=== PATIENT | female | born 2005 | race African-American/Black ===

== ENCOUNTER 2025-05-03 02:59 | Emergency (ER) | payer SELFPAY ==
[~2025-05-03] VITALS: Ht 167.6 cm; Wt 63.5 kg
[2025-05-03 03:04] VITALS: TEMP 36.3; O2SAT 99
[2025-05-03 03:58] LABS: CLARITY URINE CLOUDY (CLEAR); COLOR URINE YELLOW (YELLOW); GLUCOSE URINE NEGATIVE (NEGATIVE); KETONES URINE 2+ (NEGATIVE); LEUKOCYTE ESTERASE URINE 2+ (NEGATIVE); NITRITE URINE NEGATIVE (NEGATIVE); OCCULT BLOOD URINE 2+ (NEGATIVE); PH URINE 6.0 (4.5-8.0); PROTEIN URINE 1+ (NEGATIVE); SPECIFIC GRAVITY URINE 1.029 (1.005-1.030); UROBILINOGEN URINE 1.0 E.U./dL (0.2-1.0)
[2025-05-03 04:07] LABS: *AMPHETAMINES SCREEN URINE NEGATIVE (NEGATIVE); *BARBITURATES SCREEN URINE NEGATIVE (NEGATIVE); *BENZODIAZEPINES SCREEN URINE NEGATIVE (NEGATIVE); *COCAINE SCREEN URINE NEGATIVE (NEGATIVE); CANNABINOID URINE SCREEN PRESUMPTIVE POSITIVE (NEGATIVE); ECSTASY MDMA SCREEN URINE NEGATIVE (NEGATIVE); METHADONE URINE SCREEN NEGATIVE (NEGATIVE); OPIATES URINE SCREEN NEGATIVE (NEGATIVE); PHENCYCLIDINE URINE SCREEN NEGATIVE (NEGATIVE)
[2025-05-03] MEDS: PANTOPRAZOLE SODIUM 40 MG/VIAL IV ONE (04:31)
[2025-05-03] MEDS: SODIUM CHLORIDE 0.9% 1,000 ML IV ONE (04:31)
[2025-05-03] MEDS: METOCLOPRAMIDE HCL 10MG/2ML VIAL IV ONE (04:32)
[2025-05-03 04:37] LABS: BASOPHILS % 0.4 % (0.0-2.0); EOSINOPHILS % 0.5 % (0.0-5.0); HEMATOCRIT. 31.2 % (36.0-48.0); HEMOGLOBIN. 9.9 g/dL (12.0-16.0); LYMPHOCYTES % 17.6 % (20.0-50.0); MEAN PLATELET VOLUME 9.5 fl (7.4-10.4); MONOCYTES % 5.2 % (2.0-8.0); NEUTROPHILS % 76.3 % (40.0-76.0); PLATELET 239 x1000/uL (130-400); RED BLOOD CELL COUNT 3.98 mill/uL (4.2-5.4); RED CELL DISTRIBUTION WIDTH 20.8 % (11.6-14.6)
[2025-05-03 04:49] LABS: CREATININE 0.8 mg/dL (0.6-1.0)
[2025-05-03 04:50] LABS: ETHANOL BLOOD < 10 mg/dL (<10); UREA NITROGEN BLOOD 13 mg/dL (9-23)
[2025-05-03 04:51] LABS: ASPARTATE AMINOTRANSFERASE 22 IU/L (<34)
[2025-05-03 04:52] LABS: BILIRUBIN DIRECT 0.2 mg/dL (<=3.0); BILIRUBIN TOTAL 0.6 mg/dL (0.1-1.0); PROTEIN TOTAL 7.2 g/dL (6.0-8.3)
[2025-05-03 05:16] LABS: SQUAMOUS EPITHELIAL CELL URINE 3+ /lpf (RARE/1+)
[2025-05-03 05:25] LABS: BACTERIA URINE 1+
[2025-05-03 05:29] LABS: HCG SCREEN NEGATIVE
[2025-05-03 05:30] VITALS: BP 108/60; PULSE 61; RESP 17; O2SAT 98
== END 2025-05-03 06:53 | disposition left against medical advice (07) ==
LOC: ER 03:10 → EDBEDREQ 05:26 → EDBEDREQTM 05:26 → ENRESERV 06:16 → ER 06:53 → CMPBEDREQ 05-04 07:17
DX: E86.0 Dehydration (principal); F12.10 Cannabis abuse, uncomplicated; Z79.899 Other long term (current) drug therapy
CPT/HCPCS: 80076; 80305; 80048; 81003; 80320; 84703; 83690; 85025; 36415; 96365; 96375; 99284; J2765; J2470; J7030; Z7610; A4606; G0480